=== PATIENT | male | born 1990 | race Caucasian/White ===

== ENCOUNTER 2017-07-07 09:51 | Emergency (ER) | payer BC ==
[2017-07-07 10:01] VITALS: BP 159/87
--- NOTE | 2017-07-07 11:00 | EDM.PDOC ---
ED HPI GENERAL MEDICAL PROBLEM - General Chief Complaint: Lower Extremity Injury/Pain Stated Complaint: LEFT ANKLE PAIN Time Seen by Provider: 07/07/17 10:09 Source of Information: Reports: Patient, RN Notes Reviewed - History of Present Illness INITIAL COMMENTS - FREE TEXT/NARRATIVE: 27-year-old male comes in with left ankle injury. This occurred yesterday afternoon. He has had pain swelling lateral aspect of ankle since the injury. The pain is worse with any type of motion or weightbearing. He did have sprain injury to this ankle many years ago but not this bad. No injury to the knee. He did scrape his mouth up a bit. Left Ankle Pain Score (Numeric/FACES): 8 - Related Data Allergies Allergy/AdvReac Type Severity Reaction Status Date / Time No Known Allergies Allergy Verified 07/07/17 10:01 Home Meds: Home Meds . [No Known Home Meds] 07/07/17 [History] Past Medical History - Past Health History Medical/Surgical History: Denies Medical/Surgical History Social & Family History - Family History Family Medical History: Noncontributory - Tobacco Use Smoking Status *Q: Current Every Day Smoker Years of Tobacco use: 6 Packs/Tins Daily: 0.8 - Recreational Drug Use Recreational Drug Use: No Review of Systems - Review of Systems Review Of Systems: See Below Mouth/Throat: Reports: Other (abrasion injury to mouth) Respiratory: Denies: Shortness of Breath Cardiovascular: Denies: Chest Pain GI/Abdominal: Denies: Vomiting Musculoskeletal: Reports: Joint Pain (left ankle, lateral aspect). Denies: Leg Pain, Foot Pain Neurological: Reports: No Symptoms ED EXAM, GENERAL - Physical Exam Exam: See Below General Appearance: Alert, No Apparent Distress Throat/Mouth: Other (he does have some abrasion injury to his mouth) Head: Other Neck: Supple (no other areas of facial injury visible) Respiratory/Chest: No Respiratory Distress Extremities: Joint Swelling (there is some swelling of the ankle laterally, moderate diffuse tenderness lateral ankle, medial ankle is nontender without swelling). No: Leg Pain (leg is nontender, knee nontender, foot nontender) Neurological: Alert, No Motor/Sensory Deficits Skin Exam: Warm, Dry, Normal Color Course - Vital Signs Last Recorded V/S: Last Vital Signs Temp 98.0 F 07/07/17 09:58 Pulse 81 07/07/17 09:58 Resp 16 07/07/17 09:58 BP 159/87 H 07/07/17 09:58 Pulse Ox 92 L 07/07/17 09:58 - Orders/Labs/Meds Orders: Active Orders 24 hr Category Date Time Status Ankle Min 3V Lt [CR] Stat Exams 07/07/17 10:15 Taken - Re-Assessments/Exams Free Text/Narrative Re-Assessment/Exam: 07/07/17 11:17 x-ray of ankle no fracture Departure - Departure Time of Disposition: 10:58 Disposition: Home, Self-Care 01 Condition: Fair Clinical Impression: Left ankle sprain Qualifiers: Encounter type: initial encounter Involved ligament of ankle: unspecified ligament Qualified Code(s): S93.402A - Sprain of unspecified ligament of left ankle, initial encounter - Discharge Information Instructions: Ankle Sprain, [id number] Referrals: PCP,None [Primary Care Provider] - Forms: ED Department Discharge, ED Return to Work/School Form Additional Instructions: Luis wrap, ice packs and elevation as needed for swelling, rest foot and ankle until pain resolving, use crutches until pain resolving, Tylenol or ibuprofen as needed for discomfort, have rechecked if symptoms not resolving within 7-10 days as expected. - My Orders Last 24 Hours: My Active Orders 07/07/17 10:15 Ankle Min 3V Lt [CR] Stat - Assessment/Plan Last 24 Hours: My Active Orders 07/07/17 10:15 Ankle Min 3V Lt [CR] Stat
--- NOTE | 2017-07-08 12:50 | CR ---
Left ankle: Four views of the left ankle were obtained. Soft tissue swelling is seen. Ankle mortise is symmetric. No acute fracture or other bony abnormality is seen. Impression: 1. Soft tissue swelling. No acute bony abnormality is identified on left ankle exam. Diagnostic code #1
== END 2017-07-07 11:25 | disposition home or self-care (01) ==
LOC: JD.ED 09:51
DX: S93.402A Sprain of unspecified ligament of left ankle, initial encounter (principal); F17.210 Nicotine dependence, cigarettes, uncomplicated; X58.XXXA Exposure to other specified factors, initial encounter
CPT/HCPCS: 73610-26-LT; 73610-LT; 99283; 99284